=== PATIENT | female | born 1955 | race Caucasian/White ===

== ENCOUNTER → 2017-03-22 | Outpatient (CLI) | payer BC ==
--- NOTE | 2017-03-22 09:39 | MR ---
EXAMINATION TYPE: MR knee RT wo con DATE OF EXAM: 03/22/2017 8:18 AM COMPARISON: NONE HISTORY: Right Knee Pain with Locking and Swelling for over a year TECHNIQUE: Multiplanar, multisequence imaging of the right knee was performed. FINDINGS: MEDIAL MENISCUS: Anterior and posterior horns are intact without tear. Myxoid degeneration posterior horn medial meniscus. LATERAL MENISCUS: Anterior and posterior horns are intact without tear. CRUCIATE LIGAMENTS: The anterior and posterior cruciate ligaments are intact and unremarkable. COLLATERAL LIGAMENTS: The medial collateral ligament and lateral collateral ligament complex are intact and unremarkable. EXTENSOR MECHANISM: Visualized quadriceps and patellar tendons are intact. EFFUSION: No evidence for joint effusion. POPLITEAL CYST: No popliteal/medina cyst. TRICOMPARTMENT SPACES: Mild narrowing medial tibiofemoral joint space. Remaining joint spaces are wel l preserved. CARTILAGE: The articular cartilage is maintained without abnormal signal or full-thickness defect. BONE MARROW SIGNAL: No focal abnormal marrow signal is appreciated: OTHER: 2 cystic structures are seen in the region of Hoffa's fat pad measuring 5.8 and 4.4 mm respect ively may reflect small ganglion cysts. IMPRESSION: 1. Myxoid degeneration posterior horn medial meniscus. No evidence for tear. 2.: 2 cystic structures are seen in the region of Hoffa's fat pad measuring 5.8 and 4.4 mm respective ly may reflect small ganglion cysts.
== END | disposition home or self-care (01) ==
LOC: RADMRIMAIN 07:41
PROVIDERS: ATTEND Orthopaedic Surgery
DX: M23.321 Other meniscus derangements, posterior horn of medial meniscus, right knee (principal); M23.021 Cystic meniscus, posterior horn of medial meniscus, right knee

== ENCOUNTER → 2019-04-05 | Outpatient (CLI) | payer MEDICARE ==
[2019-04-05 16:09] LABS: African American GFR (CKD) 89.7 (60.0-200.0); Anion Gap 9.2 mmol/L (4.00-12.00); BUN/Creat Ratio 17.5 Ratio (12.00-20.00); Calcium 9.7 mg/dL (8.7-10.3); Carbon Dioxide 25.8 mmol/L (21.6-31.8); Potassium 4.6 mmol/L (3.5-5.5)
== END | disposition home or self-care (01) ==
LOC: LABWHC1 09:17
PROVIDERS: ATTEND Nurse Practitioner
DX: I71.4 Abdominal aortic aneurysm, without rupture (principal)
CPT/HCPCS: 36415; 80048; 83735

== ENCOUNTER → 2019-04-12 | Outpatient (CLI) | payer MEDICARE ==
--- NOTE | 2019-04-12 09:54 | CT ---
EXAMINATION TYPE: CT angio thor/abd pel aorta DATE OF EXAM: 04/12/2019 COMPARISON: None HISTORY: AAA CT DLP: 695.70 mGycm. Automated Exposure Control for Dose Reduction was Utilized. CONTRAST: CT scan of the thorax, abdomen and pelvis is performed without and with IV Contrast, patient injected with 100 ml mL of Isovue 370. FINDINGS: VASCULAR: Normal three-vessel takeoff from the aortic arch. No evidence of thoracic aortic aneurysm. Abdominal aorta is normal in caliber. There are a few calcified and noncalcified atherosclerotic plaq ue seen below the renal arteries involving the abdominal aorta. No evidence of aneurysm, dissection o r occlusion. Visualized portions of the bilateral iliac arteries are patent. LUNGS: The lungs are grossly clear, there is no concerning parenchymal mass or nodule identified. S mall area of scarring/atelectasis seen in the left lower lobe. There is no pleural effusion or pneumo thorax seen. The tracheobronchial tree is patent. MEDIASTINUM: There are no greater than 1 cm hilar or mediastinal lymph nodes. No pericardial effusi on is seen. OTHER: No additional significant abnormality is seen. LIVER/GB: No significant abnormality is appreciated. PANCREAS: No significant abnormality is seen. SPLEEN: No significant abnormality is seen. ADRENALS: No significant abnormality is seen. KIDNEYS: Symmetric perfusion of the bilateral kidneys. No solid renal mass. Bilateral small parapelvi c cysts, greater on the left. BOWEL: No significant abnormality is seen. GENITAL ORGANS: No gross abnormality seen. LYMPH NODES: No greater than 1cm abdominal or pelvic lymph nodes are appreciated. OSSEOUS STRUCTURES: Small nonspecific area of sclerosis seen at the superior portion of L4. Osseous s tructures are grossly intact. OTHER: No significant additional abnormality is seen. IMPRESSION: No evidence of thoracic or abdominal aortic aneurysm. Minimal atheromatous disease is seen in the inf rarenal abdominal aorta.
== END | disposition home or self-care (01) ==
LOC: RADCTMAIN 06:57
PROVIDERS: ATTEND Internal Medicine Interventional Cardiology
DX: I70.0 Atherosclerosis of aorta (principal)
CPT/HCPCS: 71275; 74174; Q9967

== ENCOUNTER → 2020-05-17 | Outpatient (CLI) | payer MEDICARE ==
--- NOTE | 2020-05-17 15:59 | CT ---
EXAMINATION TYPE: CT image guided sinus DATE OF EXAM: 05/17/2020 COMPARISON: CT facial bones October 25, 2009. HISTORY: Chronic sinusitis and polyps per order. Headache per order. CT DLP: 31.43 mGycm. Automated Exposure Control for Dose Reduction was Utilized. TECHNIQUE: CT scan of the sinuses is performed without contrast, axial images are obtained, FINDINGS: Images are for surgical planning and not for diagnostic purposes. Persistent mucosal thicke will and patchy opacification of the right ethmoid sinuses. Mild to moderate mucosal thickening of th e posterior left ethmoid sinuses. Moderate to severe mucosal thickening in the bilateral maxillary si nuses more prominent from 2010 study. Dependent fluid inferiorly in the right frontal sinus. Antral m ucosal thickening is present bilaterally. Visualized portion of mastoid air cells show no abnormal opacification. The globes are intact bilate rally. IMPRESSION: As above.
== END | disposition home or self-care (01) ==
LOC: RADCTMAIN 15:15
PROVIDERS: ATTEND Otolaryngology
DX: J34.89 Other specified disorders of nose and nasal sinuses (principal); J32.9 Chronic sinusitis, unspecified
CPT/HCPCS: 70486

== ENCOUNTER 2020-06-08 10:31 | Day surgery (SDC) | payer MEDICARE ==
[2020-06-06 12:04] VITALS: BMI 25.9
[~2020-06-08 10:31] MED LIST: DEXAMETHASONE SOD PHOSPHATE 10 MG/ML 1 ML VIAL IV ONE; DEXAMETHASONE SOD PHOSPHATE 20 MG in DEXTROSE 5% IN WATER 50 ML IV ONE; DEXAMETHASONE SOD PHOSPHATE 4 MG/ML 1 ML VIAL IV ONE; FAMOTIDINE 20 MG/2 ML VIAL IV ONE; LACTATED RINGERS 1,000 ML IV SCH; LIDOCAINE 1% (10MG/ML) FOR IV START INTRADERMA PRN; MELOXICAM 7.5 MG TAB PO ONE; ONDANSETRON 4 MG/2 ML VIAL IVP ONE
[2020-06-08] MEDS: OXYMETAZOLINE 0.05% NASL SPRAY 1 SPRAY BOTTLE NASAL ONE ×3 (10:54→11:14)
[2020-06-08] MEDS ORDERED: SCOPOLAMINE 1.5MG/72HR PATCH TRANSDERM ONE (11:09)
[2020-06-08] MEDS ORDERED: PHENYLEPHRINE-0.9% NACL SYG 1 MG/10 ML SYRINGE ONE (12:47)
[2020-06-08] MEDS ORDERED: PROPOFOL 10 MG/ML 20 ML VIAL IV ONE (12:47)
[2020-06-08] MEDS ORDERED: ONDANSETRON 4 MG/2 ML VIAL ONE (12:47)
[2020-06-08] MEDS ORDERED: fentaNYL (PF) 50 MCG/ML 2 ML AMP ONE (12:47)
[2020-06-08] MEDS ORDERED: SUCCINYLCHOLINE CHLORIDE 100 MG/5 ML SYR IV ONE (12:47)
[2020-06-08] MEDS ORDERED: MIDAZOLAM 2 MG/2 ML VIAL ONE (12:47)
[2020-06-08] MEDS ORDERED: EPINEPHrine 1 MG/ML (MDV) 30 ML VIAL TOPICAL ONE (13:28)
[2020-06-08] MEDS ORDERED: FLUORESCEIN STRIPS 1 MG STRIP MISCELLANE ONE (13:30)
[2020-06-08] MEDS ORDERED: LIDOCAINE 1%-EPI 1:100,000 20 ML VIAL SQ ONE (13:30)
[2020-06-08 14:05] VITALS: TEMP 97
[2020-06-08] MEDS ORDERED: amLODIPine 10 MG TAB PO STA (14:07)
--- NOTE | 2020-06-08 14:07 | P.OP ---
Date of Procedure: 06/08/20 Preoperative Diagnosis: Chronic sinusitis Sinonasal polyposis Postoperative Diagnosis: Same Procedure(s) Performed: Image guided functional endoscopic sinus surgery with polypectomy Resection of a left middle turbinate meme bullosa and removal of a middle turbinate osteoma Anesthesia: CHAPIN Surgeon: Aidan Victor Estimated Blood Loss (ml): 5 Pathology: other (Sinonasal) Condition: stable Disposition: PACU Indications for Procedure: This patient suffers from chronic sinus issues including headaches, anosmia, nasal obstruction severe, discolored drainage. The patient has been on multiple antibiotics and the antibiotics and prednisone helped for about 10-14 days but returns shortly thereafter. CAT scan evaluation shows blockage of the sinuses and polyposis is noted along with a left middle turbinate mmee bullosa and what appears to be an osteoma. Fundal infection appears to be problematic, CAT scan with some calcifications of the maxillary sinuses and severe disease noted. Ethmoid disease is also noted along with frontal sinus disease. The sphenoid sinuses appear to be relatively spared. After long discussion the patient requests to proceed forward with functional endoscopic sinus surgery and we will also resect the middle turbinate meme bullosa on the left with removal of an osteoma. We will also use propel. All risks, benefits, and alternative therapies were discussed. Consent was obtained and all questions were answered. Operative Findings: Patient had chronic sinusitis of the bilateral frontal sinuses maxillary and ethmoid sinuses with polyposis. There is a large left middle turbinate meme bullosa with what appeared to be a osteoma on the left side. Polyp disease was removed and all sinuses were open. Description of Procedure: Patient was taken to the operative room and placed in the supine position. A general inhalation anesthetic was administered to the patient by mask and subsequently intubated with a cuffed endotracheal tube by the department of anesthesia with a functioning IV line in place. The patient was monitored throughout the entire case by the department of anesthesia. The lateral nasal wall middle turbinate inferior turbinates were injected with lidocaine 1% with epinephrine 1 100,000. 10 minutes were allowed wait for full vasoconstrictive effects to take place. This time and infraturbinal maxillary antrostomy was performed utilizing a 0 Florez lennox scope and a Pastora. We entered the bilateral maxillary sinuses underneath the inferior turbinates and we remove diseased tissue and polyps. This was done with a microdebrider. We then took down the uncinate process under endoscopic visualization. We then registered the image guided system utilizing the [employer] and [employer]. We utilized anatomic points for guidance and utilize this [employer]k system through the rest of the procedure. The InstaTrak system worked beautifully throughout the entire case and we used a 0 and 30 Florez lennox scope for visualization on the [employer] shandra system for anatomic guidance of visualization and confirmation. We then opened up the maxillary sinuses bilaterally with use of a microdebrider and we remove diseased tissue and polyps from the maxillary sinuses bilaterally. We then took down all the ethmoid polyps and we resected the lateral wall of the meme bullosa on the left side and removal of what appear to be an osteoma. We then took out all the polyps from the ethmoid sinuses and did a total ethmoidectomy with removal of all ethmoid septations bilaterally. After all ethmoid septations were removed and polyposis was removed and the left middle turbinate meme bullosa was resected and the osteoma was removed we then opened up the frontal sinuses bilaterally we at first gain confirmation of the nasofrontal duct with use of an entellus balloon we dilated the frontal sinuses we then entered the frontal sinuses we remove diseased tissue from the frontal sinuses bilaterally we explored the frontal sinuses bilaterally to summarize the lateral maxillary ethmoid and frontal sinuses were all open all ethmoid septations were removed we remove diseased tissue and polyps from all the sinuses and we used the [employer]GlueaTrak system for anatomic confirmation. The patient tolerated this well and follow-up will be in the office in 1 week for recheck. The patient is to call me if any problems should arise.
[2020-06-08] MEDS ORDERED: HYDROmorphone 1 MG/ML 1 ML SYRINGE IVP ONE ×3 (14:21)
[2020-06-08 15:12] VITALS: RESP 18
[2020-06-08] MEDS ORDERED: HYDROcodone/APAP 5-325MG 1 EACH TAB ONE (15:18)
[2020-06-08] MEDS ORDERED: OXYMETAZOLINE 0.05% NASL SPRAY 1 SPRAY BOTTLE ONE (15:27)
[2020-06-08] MEDS ORDERED: OXYMETAZOLINE 0.05% NASL SPRAY 1 SPRAY BOTTLE NASAL ONE (15:29)
[2020-06-08] MEDS ORDERED: HYDROcodone/APAP 5-325MG 1 EACH TAB PO ONE (15:30)
[2020-06-08 15:36] VITALS: BP 147/81; PULSE 78
== END 2020-06-08 16:10 | disposition home or self-care (01) ==
LOC: OR 10:31
PROVIDERS: ATTEND Otolaryngology
DX: J32.8 Other chronic sinusitis (principal); D16.4 Benign neoplasm of bones of skull and face; J33.9 Nasal polyp, unspecified; J45.909 Unspecified asthma, uncomplicated; K21.9 Gastro-esophageal reflux disease without esophagitis; E07.9 Disorder of thyroid, unspecified; Z79.890 Hormone replacement therapy; Z79.899 Other long term (current) drug therapy; Z98.890 Other specified postprocedural states; Z90.710 Acquired absence of both cervix and uterus; Z87.01 Personal history of pneumonia (recurrent)
CPT/HCPCS: 88305; 88311; 31240; 31267; 31253; C2625; C1726; J0171; J2250; J1100; J2405; J0690; J3010; J1170; J2370; J0330; J2704

== ENCOUNTER → 2021-06-28 | Outpatient (CLI) | payer MEDICARE ==
--- NOTE | 2021-07-02 10:22 | MM ---
Reason for exam: screening (asymptomatic). Last mammogram was performed 4 years and 10 months ago. History: Patient is postmenopausal. Physical Findings: A clinical breast exam by your physician is recommended on an annual basis and results should be correlated with mammographic findings. MG 3D Screening Mammo W/Cad Bilateral CC and MLO view(s) were taken. Prior study comparison: August 23, 2016, bilateral MG screening mammo w CAD. The breast tissue is heterogeneously dense. This may lower the sensitivity of mammography. No significant changes when compared with prior studies. ASSESSMENT: Benign, BI-RAD 2 RECOMMENDATION: Routine screening mammogram of both breasts in 1 year.
== END | disposition home or self-care (01) ==
LOC: RADMAMWWP 09:09
PROVIDERS: ATTEND Internal Medicine
DX: Z12.31 Encounter for screening mammogram for malignant neoplasm of breast (principal)
CPT/HCPCS: 77063; 77067

== ENCOUNTER → 2021-08-06 | Outpatient (CLI) | payer MEDICARE ==
--- NOTE | 2021-08-06 09:39 | CT ---
EXAMINATION TYPE: CT sinus wo con DATE OF EXAM: 08/06/2021 COMPARISON: Prior sinus CT May 17, 2020 HISTORY: Chronic Sinusitis, history of prior surgery. CT DLP: 564.4 mGycm. Automated Exposure Control for Dose Reduction was Utilized. TECHNIQUE: CT scan of the sinuses is performed without contrast, axial images are obtained, coronal r eformatted images are also reviewed. FINDINGS: Mild to moderate mucosal thickening in the inferior maxillary sinuses bilaterally remains p resent improved from prior. There is more focal moderate anterior mucosal thickening right maxillary sinus inferiorly, possible small polyp or cyst. Mild 2 moderate mucosal thickening in the ethmoid sin uses bilaterally greatest anteriorly after surgery. No new opacification of the frontal or sphenoid s inuses bilaterally. The surgically treated ostiomeatal complex is widely patent bilaterally on the c oronal images. Visualized portion of mastoid air cells show no abnormal opacification. The globes are intact bilate rally. IMPRESSION: Some residual chronic paranasal sinus disease bilateral frontal and maxillary sinuses imp roved from prior. No acute sinusitis. The surgically treated ostiomeatal complex is now widely patent bilaterally.
== END | disposition home or self-care (01) ==
LOC: RADCTMAIN 08:13
PROVIDERS: ATTEND Otolaryngology
DX: J32.9 Chronic sinusitis, unspecified (principal)
CPT/HCPCS: 70486

== ENCOUNTER → 2022-08-01 | Outpatient (CLI) | payer MEDICARE ==
--- NOTE | 2022-08-02 18:31 | MM ---
Reason for Exam: Screening (asymptomatic). Last mammogram was performed 1 year(s) and 2 month(s) ago. Patient History: Menarche at age 11. First Full-Term at age 16. Left ovary removed at age 39. Right ovary removed at age 39. Hysterectomy at age 39. Postmenopausal. Mother had ovarian cancer, age 60. Risk Values: Nubia 5 year model risk: 1.2%. NCI Lifetime model risk: 4.0%. Prior Study Comparison: 04/30/2013 Bilateral Screening Mammogram, [facility]. 08/23/2016 Bilateral Screening Mammogram, [facility]. 06/28/2021 Bilateral Screening Mammogram, [facility]. Tissue Density: The breast tissue is heterogeneously dense. This may lower the sensitivity of mammography. Findings: Analyzed By CAD. Benign calcifications on the right. Benign renal cysts calcifications on the left. No significant change from prior exams. Overall Assessment: Benign, BI-RAD 2 Management: Screening Mammogram of both breasts in 1 year. 1. Patient should continue monthly self breast exams. 2. A clinical breast exam by your physician is recommended on an annual basis. 3. This exam should not preclude additional follow-up of suspicious palpable abnormalities. Electronically signed and approved by: Diane Ricardo M.D. Radiologist
== END | disposition home or self-care (01) ==
LOC: RADMAMWWP 02-26 07:26
PROVIDERS: ATTEND Internal Medicine
DX: Z12.31 Encounter for screening mammogram for malignant neoplasm of breast (principal); Z78.0 Asymptomatic menopausal state
CPT/HCPCS: 77063; 77067